=== PATIENT | female | born 1965 | race Caucasian/White ===

== ENCOUNTER 2019-08-25 11:59 | Outpatient (CLI) | payer OTHER, SELFPAY ==
--- NOTE | ~2019-08-25 | XR_ITS ---
EXAMINATION: XR chest 2V 08/25/2019 12:24 INDICATION: Fever for 2 weeks PROCEDURE: 2 view chest COMPARISON: 02/22/2016 FINDINGS: The lungs are clear. PICC line tip in the SVC. The cardiomediastinal silhouette is within n ormal limits. There are no pleural effusions. There is no pneumothorax suspected. IMPRESSION: 1: NO ACUTE CARDIOPULMONARY DISEASE. Reviewed, dictated and finalized at location A.
== END 2019-08-25 12:00 | disposition home or self-care (01) ==
LOC: ANHIMG 12:09
PROVIDERS: PCP Physician Assistant; Visit Provider Physician Assistant
DX: R50.9 Fever, unspecified (principal)
CPT/HCPCS: 71046

== ENCOUNTER 2023-02-15 15:32 | Emergency (ER) | payer OTHER, SELFPAY ==
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
[2023-02-15 15:42] VITALS: BP 122/72; PULSE 66; RESP 16; TEMP 36.4; O2SAT 99
== END 2023-02-15 16:35 | disposition home or self-care (01) ==
PROVIDERS: Emergency Provider Nurse Practitioner; PCP Physician Assistant
DX: S80.01XA Contusion of right knee, initial encounter (principal); S16.1XXA Strain of muscle, fascia and tendon at neck level, initial encounter; Z79.899 Other long term (current) drug therapy; Z87.891 Personal history of nicotine dependence; V49.59XA Passenger injured in collision with other motor vehicles in traffic accident, initial encounter
CPT/HCPCS: 72040; 73562; 99204; G0463

== ENCOUNTER 2023-05-19 00:57 | Day surgery (SDC) | payer OTHER, SELFPAY ==
[2023-05-03 14:12] VITALS: BMI 26.5
--- NOTE | 2023-05-17 10:09 | SUR.PREOP ---
Patient called regarding upcoming procedure. Reviewed preop instructions, appointment times, and procedure prep.
--- NOTE | 2023-05-18 14:56 | PM.HPGS ---
History of Present Illness History of Present Illness Consent: Risks, benefits, and alternatives have been discussed and questions answered. Patient agrees to proceed with procedure. Chief complaint: Family history of colon cancer Narrative: Blanca Merrill is a 57 year old female referred for colon cancer screening. She has a family history of colon cancer.Also she has had breast cancer and genetic markers indicate a higher risk for colon cancer. Review of Systems Review of Systems: All systems reviewed & are unremarkable except as noted in HPI and below PMFSH Social History Social History Smoking status: Former smoker Tobacco type: cigarettes Smoking end date: 06/06/89 Alcohol intake: current Alcohol use details: occasional Substance use: never Substance use type: does not use Living arrangements: with family Spiritual care concerns: No Meds Home Medications and Allergies Home Medications Medication Instructions Recorded Confirmed Type anastrozole 1 mg tablet 1 mg PO DIRECTED 02/15/23 05/19/23 History zonisamide 100 mg capsule 100 mg PO DIRECTED 02/15/23 05/19/23 History aspirin 81 mg capsule 81 mg PO DAILY 05/03/23 05/19/23 History fezolinetant 45 mg tablet (Veozah) 45 mg PO DAILY 05/03/23 05/19/23 History Allergies Allergy/AdvReac Type Severity Reaction Status Date / Time Penicillins Allergy Mild Hives Verified 05/19/23 06:34 Exam Const: General: alert Orientation/consciousness: patient oriented x3 Resp: Auscultation: clear to auscultation bilaterally Cardio: Rhythm: regular rhythm GI: GI Palp: Yes Soft to palpation and No Tenderness to palpation present (GI) Neuro: General: patient oriented x3 Assessment and Plan Assessment and plan (1) Colon cancer screening: Code(s): Z12.11 - Encounter for screening for malignant neoplasm of colon Status: Acute Assessment and Plan: Colonoscopy with possible biopsy or polypectomy or cautery or injection of substances.
[2023-05-19 06:36] VITALS: BP 119/69; PULSE 77; RESP 16; TEMP 36.2; O2SAT 98
[2023-05-19] MEDS: LACTATED RINGERS 1,000 ML 150 ML IV CONT (06:52)
--- NOTE | 2023-05-19 07:17 | P.PNAN_ITS ---
Anes - Initial Pre Proc Eval Procedure: Operation Date: 05/19/23 07:30 Proposed Procedures p Colonoscopy - Eddi Pinon MD Date/Time: 05/19/23 07:17 Surgeon: Eddi Pinon MD Pre Op Diagnosis: Family history of colon cancer Patient Data Age: 57 Gender: F Height: 1.78 m Weight: 87.4 kg Last Vital Signs Temp 97.2 F L 05/19/23 06:36 Pulse 77 05/19/23 06:36 Resp 16 05/19/23 06:36 BP 119/69 05/19/23 06:36 Pulse Ox 98 05/19/23 06:36 O2 Del Method Room Air 05/19/23 06:36 Allergies Allergy/AdvReac Type Severity Reaction Status Date / Time Penicillins Allergy Mild Hives Verified 05/19/23 06:34 Home Medications Medication Instructions Recorded Confirmed Type anastrozole 1 mg tablet 1 mg PO DIRECTED 02/15/23 05/19/23 History zonisamide 100 mg capsule 100 mg PO DIRECTED 02/15/23 05/19/23 History aspirin 81 mg capsule 81 mg PO DAILY 05/03/23 05/19/23 History fezolinetant 45 mg tablet (Veozah) 45 mg PO DAILY 05/03/23 05/19/23 History Patient hx anesthesia problems: none Family hx anesthesia problems: none Results Review: All pre-operative results and documents have been reviewed as part of the pre- operative evaluation. [facility] Social History Social History Smoking status: Former smoker Tobacco type: cigarettes Smoking end date: 06/06/89 Alcohol intake: current Alcohol use details: occasional Substance use: never Substance use type: does not use Living arrangements: with family Spiritual care concerns: No Anes - Eval Final PreProcedure Day of Procedure 05/19/23 07:17 Patient weight: normal Heart: regular rate and rhythm Lungs: clear to auscultation Airway: Mallampati scale class II Neurological: alert and oriented Last oral intake: >/= 8 hours ASA classification: II Emergent: no Anesthetic plan: proceed Anesthesia type and monitoring: general GIVS and standard monitoring Results Review: All pre-operative results and documents have been reviewed as part of the pre- operative evaluation. Informed Consent: The patient's anesthetic plan and its attendant risks and benefits were discussed with the patient/family/POA. Questions were solicited and answers provided to the satisfaction of the patient/family/POA.
[2023-05-19 07:53] VITALS: BP 106/49; PULSE 66; RESP 13; O2SAT 99
[2023-05-19 08:03] VITALS: BP 101/63; PULSE 70; RESP 14; O2SAT 99
[2023-05-19 08:13] VITALS: BP 110/62; PULSE 69; RESP 14; O2SAT 98
== END 2023-05-19 08:31 | disposition home or self-care (01) ==
PROVIDERS: PCP Physician Assistant; Visit Provider Internal Medicine Gastroenterology
PROC: 0DJD8ZZ Inspection of Lower Intestinal Tract, Via Natural or Artificial Opening Endoscopic (ICD-10-PCS; CPT 45378; principal; 2023-05-19 07:30)
DX: Z12.11 Encounter for screening for malignant neoplasm of colon (principal); K57.30 Diverticulosis of large intestine without perforation or abscess without bleeding; Z15.09 Genetic susceptibility to other malignant neoplasm; Z85.3 Personal history of malignant neoplasm of breast; Z79.811 Long term (current) use of aromatase inhibitors; Z87.891 Personal history of nicotine dependence; Z79.82 Long term (current) use of aspirin; Z80.0 Family history of malignant neoplasm of digestive organs
CPT/HCPCS: 45378; J2704; J7120

== ENCOUNTER 2024-01-27 16:22 | Outpatient (CLI) | payer OTHER, SELFPAY ==
--- NOTE | ~2024-01-27 | US_ITS ---
EXAMINATION: US soft tissue head and neck DATE: 01/27/2024 16:37 INDICATION: Neck swelling. TECHNIQUE: Multiple grayscale and Doppler ultrasound images of the neck were obtained. COMPARISON: None FINDINGS: In the left neck, there is a 3.8 x 1.1 x 4.3 cm subcutaneous mass that is isoechoic to norm al subcutaneous fat. IMPRESSION: 1. 4.3 cm subcutaneous mass in left neck, likely a lipoma. Reviewed, dictated and finalized at location A.
== END 2024-01-27 16:23 ==
LOC: MICIMG 16:23
PROVIDERS: PCP Physician Assistant; Visit Provider Physician Assistant
DX: R22.1 Localized swelling, mass and lump, neck (principal)
CPT/HCPCS: 76536

== ENCOUNTER 2024-04-30 07:43 | Outpatient (CLI) | payer OTHER, SELFPAY ==
--- NOTE | ~2024-04-30 | US_ITS ---
EXAMINATION: US right upper quadrant DATE: 04/30/2024 08:10 INDICATION: Liver enzyme levels above reference range TECHNIQUE: Multiple grayscale and Doppler ultrasound images of the abdomen were obtained. COMPARISON: None FINDINGS: Visualized proximal to mid abdominal aorta is normal in caliber measuring 2.7 similar approximately, 2.2 cm in the mid aorta and 1.9 cm distal aorta. The visualized proximal to mid inferior vena cava is normal. The pancreatic head and body are normal in appearance. The pancreatic tail is not visualize d. Liver has normal contour, with a smooth surface. There is increased parenchymal echogenicity and c oarsened echotexture consistent with diffuse hepatic steatosis. No liver lesion identified. No intra hepatic biliary duct dilation suspected. Portal venous flow was seen in the hepatopetal, normal direc tion and has normal Doppler waveform. There are a couple echogenic and shadowing mobile gallstones in the otherwise normal-appearing gallbladder. The common bile duct measures up to 3 mm maximal diamete r. Sonographic Peres sign was reported as negative by the cotton opener. The right kidney measures 10. 0 cm in length with normal contour and echogenicity and no hydronephrosis. IMPRESSION: 1. Nonobstructing cholelithiasis. No intra or extrahepatic biliary ductal dilation. 2. Diffuse hepatic steatosis. Reviewed, dictated and finalized at location A. CAL CHEMIST IMPRESSION: 1. Nonobstructing cholelithiasis. No intra or extrahepatic biliary ductal dilat ion. 2. Diffuse hepatic steatosis.
== END 2024-04-30 07:44 | disposition home or self-care (01) ==
LOC: MICIMG 07:43
PROVIDERS: PCP Physician Assistant; Visit Provider Physician Assistant
DX: K80.20 Calculus of gallbladder without cholecystitis without obstruction (principal); K76.0 Fatty (change of) liver, not elsewhere classified; R74.01 Elevation of levels of liver transaminase levels
CPT/HCPCS: 76705

== ENCOUNTER 2024-05-28 10:21 | Outpatient (CLI) | payer OTHER, SELFPAY ==
[2024-05-28 12:22] LABS: Basophils Percent Auto 0.5 % (0.2-1.2); Eosinophils Absolute Auto 0.1 K/mm3 (0-0.3); Eosinophils Percent Auto 1.8 % (0-4.4); Hematocrit 41.5 % (37.0-47.0); Hemoglobin 13.7 g/dL (12.0-15.0); Immature Granulocyte Absolute 0.02 K/mm3 (0.00-0.031); Immature Granulocyte Percent A 0.3 % (0-0.5); Lymphocytes Absolute Auto 1.79 K/mm3 (0.9-3.2); Lymphocytes Percent Auto 29.2 % (18.3-44.2); Mean Corpuscular Hemoglobin 29.1 pg (26-34); Mean Corpuscular Volume 88.3 fl (80-100); Mean Platelet Volume 12.2 fl (7.4-10.4); Monocytes Absolute Auto 0.6 K/mm3 (0.1-0.6); Monocytes Percent Auto 10.1 % (2.6-8.5); Neutrophils Absolute Auto 3.6 K/mm3 (1.3-6.7); Neutrophils Percent Auto 58.1 % (45.5-73.1); Platelet Count Result 193 k/mm3 (150-375); Red Cell Distribution Width 13.4 % (11.5-14.5); White Blood Count 6.1 K/mm3 (4.5-10.0)
== END 2024-05-28 10:22 | disposition home or self-care (01) ==
LOC: ANHGOSHLAB 10:22
PROVIDERS: PCP Physician Assistant; Visit Provider Surgery
DX: R22.2 Localized swelling, mass and lump, trunk (principal)
CPT/HCPCS: 36415; 85025

== ENCOUNTER 2024-05-31 00:38 | Day surgery (SDC) | payer OTHER, SELFPAY ==
[2024-05-22 08:32] VITALS: BMI 27.3
--- NOTE | 2024-05-22 08:40 | PC.NURSE ---
Report to the Outpatient Waiting Room, entrance under the green pavilion located off [facility], at time _1000_ on date _[id number]_. Planned Procedure Time: _1200_.? Time changes happen often and if your time is changed the preop area will call you the afternoon before. - You and your visitor will be asked to self-screen and do not enter if you have any COVID symptoms. Please call surgeon if you need to reschedule. - A mask is optional within the hospital at this time. Patients may have clear liquids (water, carbonated beverages, clear teas, apple juice) until 3 hours prior to surgery with a maximum of 20 ounces. - No food from midnight until time of surgery and no smoking. This includes no chewing gum, candy or mints. Take only the following medications with a SIP of water on the morning of surgery: ____Venlafaxine DO NOT STOP ANY OF YOUR OTHER PRESCRIPTION MEDICATIONS PRIOR TO SURGERY EXCEPT THE FOLLOWING Medications to discontinue per physician Mounjaro Date to take last dose____Took on the and will hold till after surgery. Please no make-up, nail sao tomean, hairspray, perfume, deodorant, or body powder the day of surgery.? No jewelry (including any body piercings) or valuables the day of surgery, leave them at home.? Please take a shower or bath the night before, or the morning of, surgery with an antibacterial soap.? Wear comfortable, loose fitting clothing.? - Jewelry must be removed prior to entering the operating room.? Rings and piercings that are not removed may be cut off. - The hospital will not accept responsibility for valuables.? - Please leave all valuables, including medications, at home the day of surgery. If you are going home after surgery, a licensed special needs bus driver must drive you home.? - NO public transportation without another adult if you receive anesthesia. - We recommend that an adult stay with you for 24 hours following discharge. - We also recommend that you do not drive, make important decision, drink alcoholic beverages, or take any drugs that were not prescribed by your health care provider for at least 24 hours after your discharge time. Follow any additional instructions given to you from your surgeon. Telephone instructions given to _Blanca__and asked if any additional questions and then verbalized understanding. Patient advised to call surgeon office or pre surgery nurse liaison [phone] if any additional questions.
--- NOTE | 2024-05-28 15:45 | PM.SD2 ---
Same Day Admit/Disch: HPI History of Present Illness Chief complaint: 6.5 Sub q mass Left Upper Neck/Back Narrative: Blanca Merrill is a 58 year old female who about a year ago was noted by her massage therapist to have a subcutaneous mass and the left upper posterolateral neck. This has been getting larger and has become painful. She was seen in the office and found to have a 6.5 cm subcutaneous mass most likely consistent with a lipoma. Ultrasound showed a 4.5 cm mass. She is taken to surgery now for excision of this left posterolateral neck mass. [facility] Past Medical History Medical History Arthritis Asthma Anxiety Surgical History Surgical History History of revision of total knee arthroplasty 2019 History of knee replacement 2018 Family History Family History Other Cancer Heart disease Social History Social History Smoking status: Never smoker Tobacco type: cigarettes Smoking end date: 06/06/89 Alcohol intake: current Alcohol use details: occasional Substance use: never Substance use type: does not use Current Housing: Decline to Answer Concerned About Future Housing: Decline to Answer Difficulty Paying Gas/Electric Bills: Decline to Answer Difficulty Paying for Meds: Decline to Answer Currently Unemployed: Decline to Answer Education: Decline to Answer Difficulty w/ Childcare or Family Care: Decline to Answer Living arrangements: with family Spiritual care concerns: No Same Day Admit/Disch: Med Pre-admit Medications Home Medications ?Medication ?Instructions ?Recorded ?Confirmed ?Type anastrozole 1 mg tablet 1 mg PO DIRECTED 02/15/23 05/22/24 History zonisamide 100 mg capsule 100 mg PO DIRECTED 02/15/23 05/22/24 History aspirin 81 mg capsule 81 mg PO DAILY 05/03/23 05/22/24 History fezolinetant 45 mg tablet (Veozah) 45 mg PO DAILY 05/03/23 05/22/24 History ezetimibe 10 mg tablet 10 mg PO HS 05/22/24 05/22/24 History tirzepatide 5 mg/0.5 mL 5 mg subcut WEEKLY 05/22/24 05/22/24 History subcutaneous pen injector (Ritu) venlafaxine 37.5 mg 37.5 mg PO DAILY 05/22/24 05/22/24 History capsule,extended release 24 hr oxycodone-acetaminophen 5 mg-325 0.5 - 1 tablet PO Q4H PRN pain #10 05/31/24 Rx mg tablet (Percocet) tabs Review of Systems Review of Systems All systems reviewed & are unremarkable except as noted in HPI and below (HPI) Exam Const: General: comfortable, no acute distress, alert and awake HENMT: Head: normocephalic and atraumatic Mouth: Yes Normal oral and palatal mucosa present Eyes: Conjunctivae: conjunctivae normal Pupils: Equal, round and reactive pupils present EOM: EOMs intact bilaterally Neck: Neck: normal visual inspection, no lymphadenopathy and nontender Thyroid: thyroid normal Lymphatic: lymphadenopathy not noted Other: Posterior lower neck just left of midline shows a 6.5 x 5.5 cm subcutaneous flat and rubbery smooth somewhat mobile mass. No overlying skin changes. No tenderness. Resp: Effort & Inspection: normal respiratory effort Auscultation: clear to auscultation bilaterally Cardio: Rate: regular rate Rhythm: regular rhythm Heart sounds: no gallops, no murmurs and no rubs GI: Inspection: non-distended GI Palp: Yes Soft to palpation, No Tenderness to palpation present (GI), No Hepatomegaly present and No Splenomegaly present Skin: Lesions: no lesions Rashes: no rashes Neuro: General: no focal motor deficits and CN's II-XI intact bilaterally Cranial nerves: Yes Equal, round and reactive pupils present, Yes Bilaterally intact EOM present, Yes facial symmetry and Yes Midline tongue present Speech: normal speech Motor exam (neuro): 5/5 motor strength present throughout and Motor abnormalities not present Extrem: General: no clubbing, cyanosis or edema and edema Psych: Affect: normal affect Thought process: Normal thought process present Insight: Good insight present (Psych) DS: Summary Time Spent with Patient Time attestation: Total time spent providing and/or coordinating discharge services: DS: Admitting Diagnosis Discharge Date 05/31/2024 Admitting Diagnosis 6.5 cm left posterior lower neck mass-plan to excise under anesthesia as an outpatient. Ultrasound shows 4.5 cm subcutaneous mass. Most likely a lipoma. Plan to excise as an outpatient under anesthesia with local anesthetic as well. The procedure, risks, benefits, alternatives have been discussed. All questions were answered. She understands and agrees to go ahead. DS: Discharge Diagnosis Discharge Diagnosis (1) Subcutaneous mass of back: Code(s): R22.2 - Localized swelling, mass and lump, trunk Status: Acute Plan Excised in the operating room 05/31/[address] Rudolph Discharge Plan Discharge Patient Disposition: Home, Self-Care Discharge Instructions: Okay to bathe or shower tomorrow No driving till Tuesday No heavy lifting over 30 lb or vigorous activity for 1 week Ambulate 3-4 times per day at home Use prescription pain medication only when necessary and lowest dose possible. Try to use [id number] Tylenol or ibuprofen for pain relief if possible. Call for severe wound pain, severe swelling and or bruising, persistent wound drainage or bleeding, temp over 100.5?, other significant change in condition. Patient Language: Greenlandic Stand Alone Forms: General Discharge Instructions Follow-up/Referrals: Ayush Rudolph MD [Physician] - 3 Weeks Discharge Medications: New oxycodone-acetaminophen [Percocet] 5-325 mg tablet 0.5 - 1 tablet PO Q4H PRN (Reason: pain) Qty: 10 0RF Continued anastrozole 1 mg tablet 1 mg PO DIRECTED Patient Comments: Says takes at HS zonisamide 100 mg capsule 100 mg PO DIRECTED Patient Comments: Says takes HS Veozah 45 mg tablet 45 mg PO DAILY Patient Comments: Takes at HS aspirin 81 mg Capsule 81 mg PO DAILY Patient Comments: Takes at HS venlafaxine 37.5 mg capsule,extended release 24hr 37.5 mg PO DAILY ezetimibe 10 mg tablet 10 mg PO HS Patient Comments: Takes at HS Mounjaro 5 mg/0.5 mL pen injector 5 mg subcut WEEKLY Rx Instructions: Says is taking every 10 days.
[2024-05-31] VITALS (8 sets, daily range): BP systolic 120–144; BP diastolic 68–98; PULSE 70–99; RESP 14–18; TEMP 36.3–36.4; O2SAT 100; BMI 28.0
[2024-05-31] MEDS: LACTATED RINGERS 1,000 ML 30 ML IV CONT ×2 (10:56→13:08)
--- NOTE | 2024-05-31 11:19 | WPDHPUPDATE1 ---
History and Physical Update Update Date/Time: 05/31/24 11:19 History and Physical has been reviewed, including an updated exam of the patient. There are NO changes in the patient's condition. Risks, benefits, and alternatives have been discussed and questions answered. Patient agrees to proceed with procedure.
--- NOTE | 2024-05-31 11:49 | P.PNAN_ITS ---
Anes - Initial Pre Proc Eval Procedure: Operation Date: 05/31/24 12:00 Proposed Procedures p Excision of Subcutaneous Mass Left Upper Neck/Back - Ayush Rudolph MD Date/Time: 05/31/24 11:49 Surgeon: Ayush Rudolph MD Pre Op Diagnosis: 6.5 Sub q mass Left Upper Neck/Back Patient Data Age: 58 Gender: F Height: 1.78 m Weight: 88.8 kg Last Vital Signs Temp 97.3 F L 05/31/24 10:48 Pulse 70 05/31/24 10:48 BP 120/72 05/31/24 10:48 O2 Del Method Room Air 05/31/24 10:48 Allergies Allergy/AdvReac Type Severity Reaction Status Date / Time Penicillins Allergy Mild Hives Verified 05/22/24 08:27 Home Medications ?Medication ?Instructions ?Recorded ?Confirmed ?Type anastrozole 1 mg tablet 1 mg PO DIRECTED 02/15/23 05/22/24 History zonisamide 100 mg capsule 100 mg PO DIRECTED 02/15/23 05/22/24 History aspirin 81 mg capsule 81 mg PO DAILY 05/03/23 05/22/24 History fezolinetant 45 mg tablet (Veozah) 45 mg PO DAILY 05/03/23 05/22/24 History ezetimibe 10 mg tablet 10 mg PO HS 05/22/24 05/22/24 History tirzepatide 5 mg/0.5 mL 5 mg subcut WEEKLY 05/22/24 05/22/24 History subcutaneous pen injector (Mounjaro) venlafaxine 37.5 mg 37.5 mg PO DAILY 05/22/24 05/22/24 History capsule,extended release 24 hr Patient hx anesthesia problems: post op nausea/vomiting (W prev GA. ) Family hx anesthesia problems: none Results Review: All pre-operative results and documents have been reviewed as part of the pre- operative evaluation. [facility] Past Medical History Medical History Arthritis Asthma Anxiety Surgical History Surgical History History of revision of total knee arthroplasty 2019 History of knee replacement 2018 Family History Family History Other Cancer Heart disease Social History Social History Smoking status: Never smoker Tobacco type: cigarettes Smoking end date: 06/06/89 Alcohol intake: current Alcohol use details: occasional Substance use: never Substance use type: does not use Current Housing: Decline to Answer Concerned About Future Housing: Decline to Answer Difficulty Paying Gas/Electric Bills: Decline to Answer Difficulty Paying for Meds: Decline to Answer Currently Unemployed: Decline to Answer Education: Decline to Answer Difficulty w/ Childcare or Family Care: Decline to Answer Living arrangements: with family Spiritual care concerns: No Anes - Eval Final PreProcedure Day of Procedure 05/31/24 11:49 Patient weight: overweight Heart: regular rate and rhythm Lungs: clear to auscultation Airway: Mallampati scale class II Neurological: alert and oriented Last oral intake: >/= 8 hours ASA classification: II Emergent: no Anesthetic plan: proceed Anesthesia type and monitoring: general ETT and standard monitoring Results Review: All pre-operative results and documents have been reviewed as part of the pre- operative evaluation. Asthma, sports induced but no problems of recent. Pt can walk 1-2 fos, no cp or sob. Informed Consent: The patient's anesthetic plan and its attendant risks and benefits were discussed with the patient/family/POA. Questions were solicited and answers provided to the satisfaction of the patient/family/POA.
[2024-05-31] MEDS: ceFAZolin 2 GM/D5W 50 ML 2 GM/50 ML BAG IVPB (12:10)
[2024-05-31] MEDS: BUPIVACAINE/EPINEPHRINE 0.5% 30 ML VIAL INFILTRATE (12:27)
--- NOTE | 2024-05-31 12:59 | W.PM.PROC2 ---
Procedure Note - Detailed Date of Procedure 05/31/24 Pre-op Diagnosis Sub q mass Left Upper Back Post-op Diagnosis Same Procedure Performed Excision 5.2 cm multi lobulated subcutaneous mass with no margin, consistent with lipoma Surgeon Ayush Rudolph MD Drop [employer] [place], [place] Anesthesia General and Local Indications Patient has a subcutaneous mass in the left upper back right at the junction with the neck. The mass measured 6.5 cm in the office. It has been enlarging and is occasionally uncomfortable. She is taken to surgery now for excision Findings 5.2 cm by 4.5 cm x 1.7 cm multi lobulated deep subcutaneous mass grossly consistent with a lipoma Description of Procedure Patient was checked and marked in the preoperative holding area. She was then taken to surgery and induced into general anesthesia. She was turned into prone position and the area of the subcutaneous mass was prepped and draped. The mass was palpable what was clearly deep in the subcutaneous. The proposed incision appeared satisfactory. Local was infiltrated in the area of the anticipated incision and the deeper subcutaneous tissues. Incision was made and dissection was carried down through Rosa's fascia. The subcutaneous mass was then encountered. Less than half of the mass was covered by a thin fibrous sheath but there were multiple lobules of the mass which made it difficult to excise. Care was taken to remove anion all areas suspicious for a part of the mass. Some normal subcutaneous may have been removed as well. Once the mass was removed, it was measured with the above dimensions. I then looked in the wound carefully and found any additional lobules of lipomatous tissue that may have been a portion of the mass. These were all removed. I then used cautery to achieve meticulous hemostasis. The wound was closed with a deep layer of 3-0 Vicryl interrupted suture to close Rosa's fascia and incorporate some of the muscular fascia to obliterate space. The subcu was closed with interrupted subcuticular 4-0 Vicryl suture. The skin was finally closed with a running 4-0 Monocryl skin suture. The wound was dressed with Exofin surgical adhesive. Patient was then returned was supine position, awakened and extubated. She transferred to recovery in good condition. Sponge needle counts were correct x2. Estimated Blood Loss -5 Drains No Packing No Pathology Yes (Subcutaneous mass suggestive of multilobulated lipoma) Complications None Condition Stable Disposition PACU [facility] Billing Surgery - Charge Forward: Surgery Billing (Excision 5.2 cm subcutaneous mass with no margin left upper back)
[2024-05-31] MEDS: oxyCODONE HCL (*CRX) 5 MG TAB IR PO (14:10)
== END 2024-05-31 14:40 | disposition home or self-care (01) ==
PROVIDERS: PCP Physician Assistant; Visit Provider Surgery
PROC: (CPT 21931; principal; 2024-05-31 12:00)
DX: D17.1 Benign lipomatous neoplasm of skin and subcutaneous tissue of trunk (principal); G89.18 Other acute postprocedural pain; J45.909 Unspecified asthma, uncomplicated; F41.9 Anxiety disorder, unspecified; M19.90 Unspecified osteoarthritis, unspecified site; Z79.82 Long term (current) use of aspirin; Z79.85 Long-term (current) use of injectable non-insulin antidiabetic drugs; Z98.890 Other specified postprocedural states; Z80.9 Family history of malignant neoplasm, unspecified; Z82.49 Family history of ischemic heart disease and other diseases of the circulatory system
CPT/HCPCS: 21931; 88307; A9270; J0690; J1100; J2003; J2250; J2405; J2704; J3010; J7120

== ENCOUNTER 2024-09-26 12:08 | Outpatient (CLI) | payer OTHER, SELFPAY ==
--- NOTE | ~2024-09-26 | XR_ITS ---
Clinical Indication: Cough, fever PA and lateral views of the chest: Comparison: 08/25/2019 Findings: Right upper lobe consolidation is compatible with pneumonia. Left lung clear. Cardiomedias tinal silhouette is within normal limits. Bones and soft tissues are unremarkable. Impression: Right upper lobe pneumonia. Reviewed, dictated and finalized at location . Impression: Right upper lobe pneumonia.
== END 2024-09-26 12:09 | disposition home or self-care (01) ==
LOC: GOSHIMG 12:09
PROVIDERS: PCP Physician Assistant; Visit Provider Physician Assistant
DX: J18.1 Lobar pneumonia, unspecified organism (principal); R09.89 Other specified symptoms and signs involving the circulatory and respiratory systems
CPT/HCPCS: 71046